=== PATIENT | female | born 1955 | race Caucasian/White ===

== ENCOUNTER 2017-04-08 07:59 | Inpatient (IN) | payer OTHER ==
--- NOTE | 2017-03-17 15:24 | PAT Medication Instructions ---
Service Date Mar 17, 2017. Current Home Medication List Atorvastatin (Lipitor), 1 TAB PO QAM Diphenhydramine Hcl (Benadryl Allergy), 1 CAP PO HS Gabapentin (Neurontin), 100 MG PO TID Glimepiride (Glimepiride), 1 TAB PO QPM Metformin Hcl (Glucophage Ext Rel), 1,000 MG PO BID Oxycodone/Acetaminophen 7.5MG/325MG (Percocet 7.5MG/325MG), 1 TAB PO Q4H PRN for Pain Polyethylene Glycol 3350 (Miralax), 17 GM PO QAM PRN for Constipation Venlafaxine Hcl (Venlafaxine Hcl Er), 1 TAB PO QAM Medication Instructions For Your Scheduled Surgery - Hold the following medications 48 hours prior to surgery: Metformin Hcl (Glucophage Ext Rel), 1,000 MG PO BID - Hold the following medications the morning of surgery: Polyethylene Glycol 3350 (Miralax), 17 GM PO QAM PRN for Constipation Farxiga 5mg QAM - Take the following medications the morning of surgery with a sip of water: Venlafaxine Hcl (Venlafaxine Hcl Er), 1 TAB PO QAM Oxycodone/Acetaminophen 7.5MG/325MG (Percocet 7.5MG/325MG), 1 TAB PO Q4H PRN for Pain (okay to take up to 4 hours prior to surgery if needed) Gabapentin (Neurontin), 100 MG PO TID Atorvastatin (Lipitor), 1 TAB PO QAM - Take the following medications as scheduled the night before surgery: Polyethylene Glycol 3350 (Miralax), 17 GM PO QAM PRN for Constipation Oxycodone/Acetaminophen 7.5MG/325MG (Percocet 7.5MG/325MG), 1 TAB PO Q4H PRN for Pain (if needed) Glimepiride (Glimepiride), 1 TAB PO QPM Gabapentin (Neurontin), 100 MG PO TID Diphenhydramine Hcl (Benadryl Allergy), 1 CAP PO HS If you have any questions please call us at [phone] or [phone] or [phone]
[2017-03-17 16:06] LABS: URINE APPEARANCE CLEAR (CLEAR); URINE BILIRUBIN NEG (NEG); URINE COLOR YELLOW; URINE NITRITE NEG (NEG); URINE PH 5.5 (4.5-7.5); URINE SPECIFIC GRAVITY 1.021 (1.000-1.030); UROBILINOGEN NEG (NEG); ZZUR CULT IF INDIC CLEAN CATCH NO
[2017-03-17 16:07] LABS: MANUAL MICROSCOPIC REQUIRED? NO; REVIEW REQ? NO
--- NOTE | 2017-03-17 16:10 | DIAGNOSTIC IMAGING REPORT ---
CHEST 2 VIEWS ROUTINE CLINICAL HISTORY: 61 years-old Female presenting with preoperative assessment. TECHNIQUE: PA and lateral views of the chest were obtained. COMPARISON: None. FINDINGS: Atherosclerosis of aortic arch may be present. Cardiac silhouette normal. Lungs and pleural spaces clear. Anterior cervical fusion hardware visualized at the base of the neck. Upper abdomen normal. IMPRESSION: 1. No acute cardiopulmonary disease. Electronically signed by: Juan Woods M.D. 03/17/2017 4:09 PM Dictated Date/Time: 03/17/2017 4:09 PM
[2017-04-08] VITALS (8 sets, daily range): BP systolic 130–161; BP diastolic 74–92; PULSE 78–101; TEMP 36.6–37.4; O2SAT 92–99; Ht 170.2 cm; Wt 87.3 kg
[~2017-04-08] VITALS: Ht 170.2 cm; Wt 87.3 kg
[~2017-04-08 07:59] MED LIST: ATOR-54 PO; ATROPINE SULFATE 0.1 MG/ML 5ML SYR IV PRN; CEFAZOLIN 2000 MG/60 ML D5W IV SCH; DAPA1TAB2 PO; DIPH25CA65 PO; EpHEDrine SULFATE INJ 50 MG/ML AMP IV PRN; GABA-112 PO; GLIM2TAB2 PO; HYDROmorphone INJ 1 MG/ML SYR IV PRN; LACTATED RINGER'S 1000ML 1,000 ML IV SCH; METF1TAB53 PO; ONDANSETRON INJ 2 MG/ML 2 ML VIAL IV PRN; OXYC7.5T65 PO; POLY335019 PO; VENL150T33 PO
[2017-04-08] MEDS ORDERED: FURO-85 PO (08:40)
[2017-04-08] MEDS ORDERED: FENTANYL CITRATE INJ 50 MCG/1 ML 2 ML VIAL ONE ×5 (09:21→11:33)
[2017-04-08] MEDS ORDERED: MIDAZOLAM HCL 1 MG/ML 2ML VIAL ONE (09:21)
--- NOTE | 2017-04-08 09:28 | History & Physical Bridge Note ---
H&P Re-Evaluation Bridge Note: I have examined the patient, reviewed the History & Physical and in the interval since the performance of the History & Physical I have noted the following changes of clinical significance: No changes noted
--- NOTE | 2017-04-08 09:28 | History and Physical ---
History & Physical Date Apr 08, 2017. Chief Complaint Back and leg pain History of Present Illness The patient is a 61 year old female with complaints of back and leg pain Additional History Hepatic Disease: No Endocrine Disorder: No Kidney Disease: No Hypertension: No Heart Disease: No Bleeding Tendencies: No Infectious Diseases: No Allergies Coded Allergies: No Known Allergies (Unverified , 03/17/17) Home Medications Scheduled Atorvastatin (Lipitor), 1 TAB PO QAM Dapagliflozin Propanediol (Farxiga), 5 MG PO QAM Diphenhydramine Hcl (Benadryl Allergy), 1 CAP PO HS Furosemide (Lasix), 1 TAB PO DAILY Gabapentin (Neurontin), 300 MG PO TID Glimepiride (Glimepiride), 2 TAB PO QPM Metformin Hcl (Glucophage Ext Rel), 1,000 MG PO BID Venlafaxine Hcl (Venlafaxine Hcl Er), 1 TAB PO QAM Scheduled PRN Oxycodone/Acetaminophen 7.5MG/325MG (Percocet 7.5MG/325MG), 1 TAB PO Q4H PRN for Pain Polyethylene Glycol 3350 (Miralax), 17 GM PO QAM PRN for Constipation Physical Examination Skin: warm/dry, no rash Eyes: normal inspection, EOMI, sclerae normal ENT: normal ENT inspection, pharynx normal Head: normocephalic, atraumatic Neck: supple, no adenopathy, trachea midline Respiratory/Chest: lungs clear, normal breath sounds, no respiratory distress Cardiovascular: regular rate, rhythm, no edema, no murmur Abdomen / GI: normal bowel sounds, non tender Back: normal inspection Extremities: normal inspection, normal range of motion Neurologic/Psych: no motor/sensory deficits, alert, normal reflexes, oriented x 3 Diagnosis Lumbar spinal stenosis with spondylolisthesis Plan of Treatment Lumbar decompression fusion L3 4
[2017-04-08] MEDS ORDERED: BUPIVACAINE/EPINEPHRINE 0.5% MPF 1:200,000 30 ML VIAL ONE (09:48)
[2017-04-08] MEDS ORDERED: BACITRACIN 50000 UNIT VIAL ONE (09:48)
[2017-04-08] MEDS ORDERED: HYDROmorphone INJ 2 MG/ML SYR/VIAL ONE ×2 (10:19→11:59)
[2017-04-08] MEDS ORDERED: ONDANSETRON INJ 2 MG/ML 2 ML VIAL ONE ×2 (10:38→12:00)
[2017-04-08] MEDS ORDERED: LIDOCAINE HCL 2% 2 ML VIAL (20MG/ML) ONE (10:38)
[2017-04-08] MEDS ORDERED: PROPOFOL IV EMULSION 10 MG/ML 20 ML VIAL IV ONE (10:38)
[2017-04-08] MEDS ORDERED: METOPROLOL TARTRATE 1 MG/ML VIAL ONE (10:38)
[2017-04-08] MEDS ORDERED: DEXAMETHASONE SOD INJ 4 MG/ML VIAL ONE (10:38)
[2017-04-08] MEDS ORDERED: FLOSEAL HEMOSTATIC MATRIX 10ML TOP ONE (11:57)
[2017-04-08] MEDS ORDERED: SODIUM CHLORIDE 0.9% 1000ML 1,000 ML IV SCH (11:58)
[2017-04-08] MEDS ORDERED: PROMETHAZINE HCL INJ 12.5 MG in SODIUM CHLORIDE 0.9% 50ML 50 ML IV PRN (12:00)
[2017-04-08] MEDS ORDERED: DO NOT ADMINISTER PNEUMOCOCCAL VACCINE PRN ×2 (12:00)
[2017-04-08] MEDS ORDERED: ESMOLOL HCL 10 MG/ML 10 ML VIAL ONE (12:00)
[2017-04-08] MEDS ORDERED: LORAZEPAM 0.5 MG TAB PO PRN (12:00)
[2017-04-08] MEDS ORDERED: ACETAMINOPHEN 500 MG TAB PO PRN (12:00)
[2017-04-08] MEDS ORDERED: SOD PHOSPHATE/SOD BIPHOSPHATE ENEMA 132 ML BTL PR PRN (12:00)
[2017-04-08] MEDS ORDERED: ALUMINUM/MAGNESIUM SUSP 30 ML UDC PO PRN (12:00)
[2017-04-08] MEDS ORDERED: KETOROLAC TROMETHAMINE 30 MG/ML VIAL ONE (12:00)
[2017-04-08] MEDS ORDERED: BISACODYL 10 MG SUPP PR PRN (12:00)
[2017-04-08] MEDS ORDERED: MAGNESIUM HYDROXIDE SUSP 30 ML UDC PO PRN (12:00)
[2017-04-08] MEDS ORDERED: ACETAMINOPHEN IV 100 ML IV PRN (12:00)
[2017-04-08] MEDS ORDERED: METOCLOPRAMIDE HCL INJ 5 MG/ML 2 ML VIAL IV PRN (12:00)
[2017-04-08] MEDS ORDERED: ONDANSETRON INJ 2 MG/ML 2 ML VIAL IV PRN (12:00)
[2017-04-08] MEDS ORDERED: LABETALOL HCL IV 5 MG/ML 20ML IV ONE (12:00)
[2017-04-08] MEDS ORDERED: NALOXONE HCL 0.4 MG/1 ML VIAL/CARP IV PRN ×2 (12:00)
[2017-04-08] MEDS ORDERED: DO NOT ADMINISTER FLU VACCINE PRN ×3 (12:00)
[2017-04-08] MEDS ORDERED: NEOSTIGMINE METHYLSULFATE 1 MG/ML 10ML VIAL ONE (12:00)
[2017-04-08] MEDS ORDERED: LORAZEPAM INJ 0.5 MG in SYRINGE 0 ML IV PRN (12:00)
[2017-04-08] MEDS ORDERED: GLYCOPYRROLATE INJ 0.2 MG/ML VIAL ONE (12:00)
[2017-04-08] MEDS ORDERED: FAMOTIDINE 20 MG TAB PO PRN (12:00)
[2017-04-08] MEDS ORDERED: hydrOXYzine HCL 25 MG TAB PO PRN (12:00)
[2017-04-08] MEDS ORDERED: EpHEDrine SULFATE 50MG/5ML SYR ONE (12:02)
--- NOTE | 2017-04-08 12:05 | [facility] Operative Report ---
Operative Report Operative Date Apr 08, 2017. Pre-Operative Diagnosis Lumbar spinal stenosis with spondylolisthesis Post-Operative Diagnosis Lumbar spinal stenosis with spondylolisthesis Procedure(s) Performed #1 lumbar decompression medial facetectomies foraminotomies L2 3 L3 4. #2 posterior spinal fusion L3 4. #3 placement posterior instrumentation L3 4. #4 placement of locally harvested morcellized autograft in the posterior lateral gutters. #5 placement of ostial amp in the posterior lateral gutters. Surgeon Dr. Brar Barback Surgeon(s) Kodi Cardenas PA-C Estimated Blood Loss 375ml Findings Severe spinal stenosis with spondylolisthesis L3 4 Specimens none per surgeon Description of Procedure Patient was met with preoperative early case discussed all questions are dressed. After informed consent patient was taken back to the operative suite underwent intubation placed in a prone position the Nilesh table on top of the Leonardo frame. All bony prominences were well-padded eyes inspected to ensure no external pressure. Lumbar spine was then prepped and draped in the normal sterile fashion. Sharp dissection with the assistance of Bovie cautery was performed onto an exposing the lamina and transverse processes of L3 4 bilaterally. This marked facet hypertrophy was appreciated. A complete laminectomy of L3 partial neck 2 was performed addressing severe lateral recess and foraminal stenosis. After this is complete pedicle screws were placed in L3 and 4 bilaterally assistance of fluoroscopy the purposes em locked in position. The lateral gutter processes of L3 and 4 were then burred to subcortical bleeding bone. Ostial amp and locally harvested morcellized autograft was placed in the posterior gutters. 15 round MARY drain inserted. Incision was then closed with 1 Vicryl fascia 2-0 Vicryl subcutaneously for Monocryl for final skin closure Steri-Strip sterile dressing was placed. Patient we can taken to PACU stable condition. Please note Doroteo Cardenas was present at the entire procedure involved in patient positioning complex portions of the surgery and final skin closure. I attest to the content of the Intraoperative Record and any orders documented therein. Any exceptions are noted below.
[2017-04-08] MEDS ORDERED: ROCURONIUM BROMIDE 10 MG/ML 5 ML VIAL IV ONE (12:07)
[2017-04-08] MEDS ORDERED: PHARMACY GLYCEMIC MGMT CONSULT SCH (12:17)
[2017-04-08] MEDS: FENTANYL CITRATE INJ 50 MCG/1 ML 2 ML VIAL IV PRN ×4 (12:20→12:35)
[2017-04-08] MEDS ORDERED: HYDROmorphone HCL 0.5MG/ML 50 ML CASSETTE ONE (12:26)
--- NOTE | 2017-04-08 12:39 | Pharmacy Progress Note ---
Glycemic Control Intl Consult Date of Service Apr 08, 2017. Scope Glycemic Pharmacist consulted by Dr Brar on 04/08/17 for glycemic control and to write orders per [facility] inpatient glycemic control protocol Objective Weight (Kilograms): 87.30 Accuchecks BSG (last 24hrs): Test 04/08/17 08:26 Bedside Glucose 154 mg/dl (70-90) Recent Pertinent Medications Outpatient Anti-diabetic Regimen: * Dapagliflozin 5mg po daily * Glimepiride 2mg po HS * Metformin 1g po BID * A1c unknown Risk Factors for Insulin Resistance: * Steroids: Dexamethasone 12mg IV x1 in OR, then 6mg IV Q8H x 3 doses post op * IVF: IV Cefazolin mixed in dextrose * Recent Surgery: s/p lumbar fusion * Diet: Type 2 DM Assessment & Plan ASSESSMENT: * 61 year old female type 2 diabetic, unknown control, BSG 154mg/dl this morning prior to surgery, s/p lumbar fusion. * BSG now 194mg/dl * Pt is maintained on oral antidiabetic agents as an outpatient * Oral agents are not recommended for inpatient use d/t drug interactions, changing PO intake, and difficulty titrating for acute hyper/hypoglycemia. ADA recommends re-initiating outpatient oral agents 1-2 days prior to discharge if/ when appropriate if they were held on admission. * Will hold oral agents for admission and utilize SQ basal bolus insulin regimen which is the recommended regimen for inpatient glycemic control. * Will initiate weight based insulin dosing for insulin hcace patient on IV steroids and titrate based on BSG trends. * ADA & AACE recommend a goal blood sugar range 140-180 mg/dl for the majority of critically ill & non-critically ill patients. However, more stringent targets may be selected in individual cases. Will utilize more stringent goal of 110-140mg/dl based on patient age & comorbidities. Additionally, tighter glycemic control is warranted to facilitate wound/infection healing. PLAN FOR INPATIENT GLYCEMIC CONTROL: * Holding outpatient oral diabetes medications * consider restarting tomorrow or the next day based on PO intake and SCr * Basal insulin with LANTUS 15 units SQ x 1 dose NOW * Correctional Insulin with NOVOLOG per scale ACHS or Q6hrs while NPO and overnight at 0000 and 0400 * Goal Range: Low 110 mg/dL - High 140 mg/dL * Correction Factor: 20 mg/dL/unit * Nutritional / Prandial insulin per carb ratio of 1 unit per 6 grams CHO consumed * Please note that the plan above was derived based on current level of insulin resistance and hospital stress. These recommendations are appropriate for inpatient admission only. Plan of care upon discharge will need to be reassessed to avoid potential outpatient hypo/hyperglycemia. Thank you.
[2017-04-08] MEDS ORDERED: GLUCOSE 10 TABS/TUBE PO PRN (12:45)
[2017-04-08] MEDS ORDERED: GLUCAGON FOR INJ 1 MG VIAL SQ PRN (12:45)
[2017-04-08] MEDS ORDERED: GLUCOSE 40% GEL 15 GM TUBE PO PRN (12:45)
[2017-04-08] MEDS ORDERED: DEXTROSE 50% 50 ML SYR IV PRN (12:45)
--- NOTE | 2017-04-08 12:47 | DIAGNOSTIC IMAGING REPORT ---
LUMBAR SPINE, INTRAOPERATIVE FLUOROSCOPY HISTORY: L3-L4 decompression and fusion. FLUOROSCOPY TIME: 19 seconds.. FINDINGS: Intraoperative fluoroscopy was provided for the lumbar spine. 2 fluoroscopic spot images were obtained. Posterior decompression fusion at L3-L4 with pedicle screws and rods. The hardware appears intact. IMPRESSION: Fluoroscopy provided for a L3-L4 posterior decompression and fusion. Electronically signed by: Christiano Rasmussen M.D. 04/08/2017 12:46 PM Dictated Date/Time: 04/08/2017 12:45 PM
--- NOTE | 2017-04-08 13:02 | Anesthesiology Progress Note ---
Anesthesia Post Op Note Date & Time Apr 08, 2017 at 13:02 Vital Signs Pain Intensity: 0 Vital Signs Past 12 Hours Date Time Temp Pulse Resp B/P (MAP) Pulse Ox O2 Delivery O2 Flow Rate FiO2 04/08/17 12:45 36.9 85 14 142/62 97 Oxymask 2 04/08/17 12:35 79 14 156/71 99 Oxymask 5 04/08/17 12:25 72 14 143/72 99 Oxymask 5 04/08/17 12:15 37.0 79 14 146/64 99 Oxymask 10 04/08/17 08:42 37.1 86 18 157/92 97 Room Air Notes Mental Status: alert / awake / arousable, participated in evaluation Pt Amnestic to Procedure: Yes Nausea / Vomiting: adequately controlled Pain: adequately controlled Airway Patency, RR, SpO2: stable & adequate BP & HR: stable & adequate Hydration State: stable & adequate Anesthetic Complications: no major complications apparent
[2017-04-08] MEDS: HYDROmorphone HCL 0.5MG/ML 50 ML CASSETTE IV PRN ×2 (13:19→18:48)
[2017-04-08] MEDS ORDERED: LANTUS PER UNIT CHARGE SQ ONE ×2 (14:00)
[2017-04-08] MEDS: LACTATED RINGER'S 1000ML 1,000 ML IV SCH ×2 (14:05→18:32)
[2017-04-08] MEDS: INSULIN ASPART 100 UNITS/ML 3 ML PEN SC SCH ×3 (14:07→20:58)
[2017-04-08] MEDS: CEFAZOLIN IV 2,000 MG in DEXTROSE 5% 50ML 50 ML IV SCH (17:52)
[2017-04-08] MEDS: DEXAMETHASONE INJ 6 MG in SYRINGE 0 ML IV SCH (17:52)
[2017-04-08] MEDS: GABAPENTIN 300 MG CAP PO SCH (20:44)
[2017-04-08] MEDS: DOCUSATE SODIUM/SENNA 50/8.6MG TAB PO SCH (20:55)
[2017-04-08] MEDS ORDERED: GLIMEPIRIDE 2 MG TAB PO SCH (21:00)
[2017-04-09] VITALS (7 sets, daily range): BP systolic 120–154; BP diastolic 70–88; PULSE 78–104; TEMP 36.2–37.1; O2SAT 95–97
[2017-04-09] MEDS: LACTATED RINGER'S 1000ML 1,000 ML IV SCH (00:01)
[2017-04-09] MEDS: INSULIN ASPART 100 UNITS/ML 3 ML PEN SC SCH ×6 (00:11→21:00)
[2017-04-09] MEDS: DEXAMETHASONE INJ 6 MG in SYRINGE 0 ML IV SCH ×2 (01:38→10:17)
[2017-04-09] MEDS: CEFAZOLIN IV 2,000 MG in DEXTROSE 5% 50ML 50 ML IV SCH (01:38)
[2017-04-09] MEDS: OXYCODONE HCL IR 5 MG TAB (IMMEDIATE RELEASE) PO PRN ×4 (05:31→22:27)
[2017-04-09] MEDS ORDERED: NURSING DECISION MEDICATION ORDER SCH (05:45)
[2017-04-09] MEDS ORDERED: DC PCA SCH (06:00)
[2017-04-09] MEDS ORDERED: HYDROmorphone INJ 0.5 MG/0.5 ML SYR IV PRN (06:00)
[2017-04-09 06:15] LABS: COMPLETE YES; HEMATOCRIT 36.6 % (37-47); IG% 0.2 %; LYMPH % 7.9 %; LYMPH ABS # 0.99 K/uL (1.2-3.4); MEAN CELL VOLUME 95.8 fL (80-100); MEAN CORPUSCULAR HEMOGLOBIN 32.5 pg (25-34); MEAN CORPUSCULAR HGB CONC 33.9 g/dl (32-36); MEAN PLATELET VOLUME 9.4 fL (7.4-10.4); MONO % 2.5 %; NEUT % 89.4 %; PLATELET COUNT 298 K/uL (130-400); RED BLOOD COUNT 3.82 M/uL (4.2-5.4); WHITE BLOOD COUNT 12.48 K/uL (4.8-10.8)
[2017-04-09] MEDS ORDERED: RXC5 PO (06:38)
--- NOTE | 2017-04-09 06:39 | Discharge Instructions ---
Discharge Instructions Date of Service Apr 09, 2017. Admission Reason for Admission: Lumbar Spinal Stenosis Discharge Discharge Diagnosis / Problem: lumbar stenosis Discharge Goals Goal(s): Improve function Activity Recommendations Activity Limitations: per Instructions/Follow-up section . Instructions / Follow-Up Instructions / Follow-Up ACTIVITY RECOMMENDATIONS: SELF CARE INSTRUCTIONS AFTER THORACIC/LUMBAR FUSIONS 1. You may walk to your tolerance. It is good exercise for your legs and back. Expect some back and intermittent leg aches and pains. 2. You may perform "counter-top" level activities (make a sandwich, purvi with a project, etc.). 3. No bending or lifting of more than 10 pounds or back twisting of any nature (roll like a log when turning in bed). 4. You may ride in a car for 20-30 minutes at a time. No driving until after your first visit with your doctor. 5. Frequent changes of position and restricting sitting to 30 minutes at a time will help limit the amount of back spasms and stiffness you may experience. 6. You may discontinue the use of ambulatory aids (cane, crutches, etc.) once your strength and confidence allow. 7. You may instructional developer the shower and let water strike your incision when you arrive home at least once daily. Do not take a tub bath, sit in a hot tub or go into a swimming pool until after your first recheck in the office. SPECIAL CARE INSTRUCTIONS: VERY IMPORTANT TO READ AND REVIEW A. Your surgical incision has been closed with a cosmetic suture under the skin that will dissolve in about 6 weeks. In 14 days, you can use a pair of clean scissors and cut the suture that is left outside of the skin at the ends of your incision. 1. The small skin tapes can be removed 7 days after surgery if they have not fallen off by that point. 2. You may keep the wound open to air as much as possible to promote healing after post-op day number 5 unless told otherwise by your doctor. 3. If you think the wound looks like it is becoming infected (redness or worsening drainage) and/or you are experiencing fever, chill or worsening back pain and muscle spasms, contact the office so that we may evaluate you as soon as possible. B. Complications are uncommon, but please contact us if you have any signs or symptoms of: 1. wound infection (fever higher than 102.5 degrees F, redness, separation of wound, drainage, or increasing pain from the incision) 2. blood clots in legs (pain, swelling, redness and warmth in legs) 3. urinary tract infection (fever higher than 102.5 degrees F, burning upon urination or increased frequency of urination) 4. nerve problems (inability to walk on your toes or heels, numbness, loss of bowel or bladder control) 5. any other symptoms that concern you C. Please call the office at if you have any concerns or questions about your operation or recovery. D. No smoking! Smoking drastically decreases the chance of a solid fusion. E. Do not take any anti-inflammatory medications (Indocin, Advil, Motrin, Aspirin, Naprosyn, etc.) as these may inhibit the chance of a solid fusion. Tylenol is okay to take for pain. MANAGING PAIN AFTER SPINAL SURGERY 1. Narcotic medication is intended for short-term use and will be provided for surgical pain. Surgical pain usually lasts for a period of 4-6 weeks. Narcotic medication includes Percocet, Vicodin, Darvocet, Tylenol #3 or Lortab. 2. Longer-term pain is more appropriately treated with non-narcotic medication such as Tylenol ES. 3. Muscle spasm is not appropriately treated with narcotics. Muscle relaxers such as Soma, Flexeril or Skelaxin can be used along with Tylenol ES. 4. Remember that we all live with some "aches and pains". This is not unusual or uncommon after an injury or as we get older. a. Back pain is expected and may include muscle spasms for 4 to 6 weeks after surgery. The pain should gradually improve. If the pain worsens for no apparent reason, please contact the office. b. Intermittent leg pain may also be experienced and should not be concerned about unless it worsens for no apparent reason. If so, please contact the office. 5. We will provide appropriate medication within the normal guidelines of their prescribed use. We will also be very cautious and aware of potential abuse and extended duration of patients' medication needs. a. Pain medications are for your comfort and to assist with sleep and rest so that the tissue can heal. They are not provided in order to return to normal activity and should not be used through the day. To do so or worsening pain at night can result from ongoing tissue damage and development of tolerance to the prescribed medicine. 6. Please allow 2-3 days to process refills. Prescriptions will not be mailed but must be picked up at the office. FOLLOW UP VISIT: Keep your scheduled follow-up appointment. Any questions, please call the office at . Current Hospital Diet Patient's current hospital diet: Diabetes Type 2 Diet Discharge Diet Recommended Diet: Regular Diet Procedures Procedures Performed: #1 lumbar decompression medial facetectomies foraminotomies L2 3 L3 4. #2 posterior spinal fusion L3 4. #3 placement posterior instrumentation L3 4. #4 placement of locally harvested morcellized autograft in the posterior lateral gutters. #5 placement of ostial amp in the posterior lateral gutters. Pending Studies Studies pending at discharge: no Laboratory Results Hemoglobin A1c Test 04/09/17 05:24 Range/Units Medical Emergencies . Who to Call and When: Medical Emergencies: If at any time you feel your situation is an emergency, please call 911 immediately. . Non-Emergent Contact Non-Emergency issues call your: Primary Care Provider . "Provider Documentation" section prepared by Jeff Brar. . VTE Core Measure Inpt VTE Proph given/why not?: Hermann Castillo, SCD's
[2017-04-09 06:51] LABS: BUN/CREATININE RATIO 16.8 (10-20); CALCIUM 9.8 mg/dl (8.5-10.1); CREATININE 0.61 mg/dl (0.60-1.20); POTASSIUM 4.6 mmol/L (3.5-5.1)
[2017-04-09 07:14] LABS: ESTIMATED AVERAGE GLUCOSE 137 mg/dl; HA1C FLAG Normal (Normal)
[2017-04-09] MEDS ORDERED: LANTUS PER UNIT CHARGE SQ ONE (08:00)
--- NOTE | 2017-04-09 08:31 | Progress Note ---
Progress Note Date of Service Apr 09, 2017. Progress Note Patient's leg pain is improved. Back pain is controlled. On exam vital signs are stable strength is intact. Assessment status post lumbar decompression fusion replant this time initiate physical therapy advance her bowel regimen anticipate possible home Tuesday or Tuesday.
[2017-04-09] MEDS: GABAPENTIN 300 MG CAP PO SCH ×3 (08:40→20:54)
[2017-04-09] MEDS: ATORVASTATIN 20 MG TAB PO SCH (08:40)
[2017-04-09] MEDS: VENLAFAXINE HCL XR 150 MG CAPXR PO SCH (08:40)
[2017-04-09] MEDS: FUROSEMIDE 20 MG TAB PO SCH (08:40)
[2017-04-09] MEDS ORDERED: NON-FORMULARY MEDICATION (Dapagliflozin Propanediol (Farxiga) 5 MG) PO SCH (09:00)
[2017-04-09] MEDS: DOCUSATE SODIUM/SENNA 50/8.6MG TAB PO SCH (20:54)
[2017-04-10] MEDS: POLYETHYLENE (MIRALAX) 17 GM PACK PO SCH ×2 (05:50→12:27)
[2017-04-10] MEDS: OXYCODONE HCL IR 5 MG TAB (IMMEDIATE RELEASE) PO PRN ×2 (05:57→11:11)
[2017-04-10 07:06] VITALS: BP 165/75; PULSE 82; TEMP 36.8; O2SAT 95
[2017-04-10] MEDS: FUROSEMIDE 20 MG TAB PO SCH (08:27)
[2017-04-10] MEDS: GABAPENTIN 300 MG CAP PO SCH ×2 (08:27→13:47)
[2017-04-10] MEDS: ATORVASTATIN 20 MG TAB PO SCH (08:27)
[2017-04-10] MEDS: VENLAFAXINE HCL XR 150 MG CAPXR PO SCH (08:28)
[2017-04-10] MEDS: INSULIN ASPART 100 UNITS/ML 3 ML PEN SC SCH ×2 (08:30→12:00)
--- NOTE | 2017-04-10 12:43 | Pharmacy Progress Note ---
Glycemic Control Progress Note Date of Service Apr 10, 2017. Scope Glycemic Pharmacist consulted for glycemic control to write orders per [facility] inpatient glycemic control protocol. Objective Accuchecks BSG (last 24hrs): Test 04/09/17 16:53 04/09/17 20:48 04/10/17 08:03 Bedside Glucose 200 mg/dl (70-90) 173 mg/dl (70-90) 106 mg/dl (70-90) HbA1c: Test 04/09/17 05:24 Hemoglobin A1c 6.4 % (4.5-5.6) H Recent Pertinent Medications Outpatient Anti-diabetic Regimen: * Dapagliflozin 5mg po daily * Glimepiride 2mg po HS * Metformin 1g po BID * A1c 6.4% 04/09/17 Risk Factors for Insulin Resistance: * Steroids: Dexamethasone 12mg IV x1 in OR, then 6mg IV Q8H x 3 doses post op, last dose yesterday morning * Recent Surgery: s/p lumbar fusion, POD 2 * Diet: Type 2 DM Assessment & Plan ASSESSMENT: 04/10/17 * BSGs at goal, pt eating, renal function good, will restart patient's orals today (except for non-formulary) and discontinue carb ratio * Last dose Dexamethasone IV was yesterday morning, no further Lantus needed 04/08/17 * 61 year old female type 2 diabetic, unknown control, BSG 154mg/dl this morning prior to surgery, s/p lumbar fusion. * BSG now 194mg/dl * Pt is maintained on oral antidiabetic agents as an outpatient * Oral agents are not recommended for inpatient use d/t drug interactions, changing PO intake, and difficulty titrating for acute hyper/hypoglycemia. ADA recommends re-initiating outpatient oral agents 1-2 days prior to discharge if/ when appropriate if they were held on admission. * Will hold oral agents for admission and utilize SQ basal bolus insulin regimen which is the recommended regimen for inpatient glycemic control. * Will initiate weight based insulin dosing for insulin chace patient on IV steroids and titrate based on BSG trends. * ADA & AACE recommend a goal blood sugar range 140-180 mg/dl for the majority of critically ill & non-critically ill patients. However, more stringent targets may be selected in individual cases. Will utilize more stringent goal of 110-140mg/dl based on patient age & comorbidities. Additionally, tighter glycemic control is warranted to facilitate wound/infection healing. PLAN FOR INPATIENT GLYCEMIC CONTROL: * Resume Metformin 1g PO BID with meals and Glimepiride 2mg daily with dinner today * Correctional Insulin with NOVOLOG per scale ACHS or Q6hrs while NPO * Goal Range: Low 110 mg/dL - High 140 mg/dL * LOOSEN: Correction Factor: 30 mg/dL/unit * DISCONTINUE Nutritional / Prandial insulin per carb ratio * Please note that the plan above was derived based on current level of insulin resistance and hospital stress. These recommendations are appropriate for inpatient admission only. Plan of care upon discharge will need to be reassessed to avoid potential outpatient hypo/hyperglycemia. Thank you.
--- NOTE | 2017-04-10 13:27 | Discharge Summary ---
Orthopedic Discharge Summary Admission Date/Reason Apr 08, 2017 at 08:15 Lumbar Spinal Stenosis. Discharge Date/Disposition Apr 10, 2017 Home Diagnosis Principal Diagnosis: Lumbar spinal stenosis Admission Physical Exam As per Admitting History & Physical. Hospital Course Patient underwent lumbar decompression fusion tolerated this well taken to the orthopedic floor postoperatively. Postoperative day #1 she is up and amatory progressed nicely through postoperative day #2 socially discharge home discharge orders and instructions found on the chart for further review. Discharge Instructions Please refer to the electronic Patient Visit Report (Discharge Instructions) for additional information.
[2017-04-10 13:28] VITALS: BP 165/75; PULSE 82; TEMP 36.8; O2SAT 95
[2017-04-10] MEDS ORDERED: METFORMIN HCL 500 MG TAB PO SCH (17:45)
[2017-04-10] MEDS ORDERED: GLIMEPIRIDE 2 MG TAB PO SCH (17:45)
== END 2017-04-10 13:57 | disposition home or self-care (01) | DRG 460 ==
LOC: C.ACU 07:59 → C.3E 08:15 → ENRESERV 12:50
PROVIDERS: ADMIT Orthopaedic Surgery Orthopaedic Surgery of the Spine; ATTEND Orthopaedic Surgery Orthopaedic Surgery of the Spine
PROC: 01NB0ZZ Release Lumbar Nerve, Open Approach (ICD-10-PCS; principal; 2017-04-08 10:15)
PROC: 0SG00Z1 (ICD-10-PCS; principal; 2017-04-08 10:15)
DX: M48.06 Spinal stenosis, lumbar region (principal); M43.16 Spondylolisthesis, lumbar region; E11.9 Type 2 diabetes mellitus without complications; I10 Essential (primary) hypertension; E78.5 Hyperlipidemia, unspecified; E66.9 Obesity, unspecified; Z98.1 Arthrodesis status; Z79.84 Long term (current) use of oral hypoglycemic drugs; Z79.899 Other long term (current) drug therapy

== ENCOUNTER → 2017-10-25 | Outpatient (CLI) | payer OTHER ==
[~2017-10-25] MED LIST changes: -ATROPINE SULFATE 0.1 MG/ML 5ML SYR IV PRN; -CEFAZOLIN 2000 MG/60 ML D5W IV SCH; -DAPA1TAB2 PO; +DAPA1TAB8 PO; -EpHEDrine SULFATE INJ 50 MG/ML AMP IV PRN; +FURO-85 PO; -HYDROmorphone INJ 1 MG/ML SYR IV PRN; -LACTATED RINGER'S 1000ML 1,000 ML IV SCH; -ONDANSETRON INJ 2 MG/ML 2 ML VIAL IV PRN; +RXC5 PO
[2017-10-25 17:57] LABS: BASO % 0.7 %; BASO ABS # 0.06 K/uL (0-0.2); EOS % 3.3 %; EOS ABS # 0.28 K/uL (0-0.5); HEMATOCRIT 44.8 % (37-47); HEMOGLOBIN 15.4 g/dL (12.0-16.0); IG# 0.02 K/uL (0.00-0.02); LYMPH % 33.5 %; LYMPH ABS # 2.86 K/uL (1.2-3.4); MEAN CELL VOLUME 94.1 fL (80-100); MEAN CORPUSCULAR HEMOGLOBIN 32.4 pg (25-34); MEAN CORPUSCULAR HGB CONC 34.4 g/dl (32-36); MEAN PLATELET VOLUME 9.5 fL (7.4-10.4); MONO % 6.2 %; MONO ABS # 0.53 K/uL (0.11-0.59); NEUT % 56.1 %; NEUT ABS # 4.78 K/uL (1.4-6.5); PLATELET COUNT 356 K/uL (130-400); RED CELL DISTRIBUTION WIDTH CV 13.7 % (11.5-14.5); RED CELL DISTRIBUTION WIDTH SD 47.1 fL (36.4-46.3); WHITE BLOOD COUNT 8.53 K/uL (4.8-10.8)
[2017-10-25 18:37] LABS: ALBUMIN 4.4 gm/dl (3.4-5.0); ALT/SGPT 45 U/L (12-78); AST/SGOT 32 U/L (15-37); BLOOD UREA NITROGEN 6 mg/dl (7-18); CARBON DIOXIDE 28 mmol/L (21-32); CHOLESTEROL 187 mg/dl (0-200); CREATININE 0.81 mg/dl (0.60-1.20); GLUCOSE 183 mg/dl (70-99); POTASSIUM 4.1 mmol/L (3.5-5.1); SODIUM 136 mmol/L (136-145)
[2017-10-25 18:41] LABS: ALKALINE PHOSPHATASE 133 U/L (45-117); LDL CHOLESTEROL CALCULATED 78 mg/dl; TOTAL PROTEIN 7.8 gm/dl (6.4-8.2)
== END | disposition home or self-care (01) ==
LOC: C.LABMFLN 11:31
PROVIDERS: ATTEND Family Medicine
DX: E11.9 Type 2 diabetes mellitus without complications (principal)